=== PATIENT | female | born 1985 | race Caucasian/White ===

== ENCOUNTER → 2017-08-02 | Outpatient (CLI) | payer BC ==
--- NOTE | 2017-08-02 12:23 | Diagnostic Imaging Report ---
INDICATION: survey. TECHNIQUE: Multiple real-time grayscale images were obtained over the gravid uterus. COMPARISON: No prior examinations are available for comparison. FINDINGS: There is a single living intrauterine in a cephalic presentation. The placenta is anterior. There is no previa. There is a normal volume of amniotic fluid. The anatomical survey is unremarkable. The heart rate is 142 beats per minute. Cervical length is 3.7 cm. There are bilateral choroid plexus cysts. Cyst on the left measures 1.4 cm and cyst on the right measures 1.2 cm. Biometrical measurements are as follows: Biparietal 5.00 cm, age 21 weeks 1 days. Head circumference 18.33 cm, age 20 weeks 5 days. Abdominal circumference 16.31 cm, age 21 weeks 3 days. Femur length 3.89 cm, age 22 weeks 4 days. Sonographic estimate age: 21 weeks 4 days. Sonographic estimated date of delivery: 12/09/2017. Estimated Weight: 447 gm (+/- 65 gm). LMP percentile: 97%. heart rate: 142 beats per minute. number: 1 of 1. IMPRESSION: 1. Single living intrauterine with a sonographically estimated gestational age of 21 weeks 4 days and estimated date of confinement of December 09, 2017. 2. Bilateral choroid plexus cysts. Dictated by: Dictated on workstation # [id number]
== END ==
LOC: RAD 10:05
PROVIDERS: ATTEND Obstetrics & Gynecology
DX: O99.352 Diseases of the nervous system complicating pregnancy, second trimester (principal); G93.0 Cerebral cysts; Z3A.21 21 weeks gestation of pregnancy
CPT/HCPCS: 76805

== ENCOUNTER 2017-11-18 19:58 | Inpatient (IN) | payer BC ==
[~2017-11-18] VITALS: Ht 170.2 cm; Wt 80.3 kg
[2017-11-18 20:11] VITALS: BP 137/84
[2017-11-18] MEDS ORDERED: LACTATED RINGERS 1,000 ML IV SCH (20:28)
[2017-11-18] MEDS ORDERED: NS IV 1000 ML 1,000 ML IV SCH (20:28)
[2017-11-18] MEDS ORDERED: TERBUTALINE INJ 1 MG/ML (BRETHINE) AMP SC PRN (20:30)
[2017-11-18] MEDS ORDERED: MINERAL OIL CONCENTRATE 99.9% 15 ML UDC TOP PRN (20:30)
[2017-11-18] MEDS ORDERED: MISOPROSTOL 100 MCG (CYTOTEC) TAB PO ONE (20:30)
[2017-11-18] MEDS: D5 LR IV SOLUTION 1,000 ML IV SCH (20:44)
[2017-11-18] MEDS ORDERED: morphine INJ 10 MG/ML 1ML (SYR OR VIAL) IVP PRN (20:45)
[2017-11-18 20:54] LABS: BASOPHILS % (AUTO) 0 % (0-10); EOSINOPHILS % (AUTO) 0 % (0-10); HEMATOCRIT 34 % (35-52); HEMOGLOBIN 11.9 G/DL (11.5-16.0); LYMPHOCYTES # (AUTO) 3.4 X 10^3 (1.0-4.0); LYMPHOCYTES % (AUTO) 19 % (12-44); MEAN CORPUSCULAR HEMOGLOBIN 30 PG (25-34); MEAN CORPUSCULAR HGB CONC 35 G/DL (32-36); MEAN CORPUSCULAR VOLUME 86 FL (80-99); MEAN PLATELET VOLUME 12.8 FL (7.4-10.4); MONOCYTES % (AUTO) 11 % (0-12); NEUTROPHILS # (AUTO) 13.1 X 10^3 (1.8-7.8); NEUTROPHILS % (AUTO) 70 % (42-75); PLATELET COUNT 189 10^3/uL (130-400); RED CELL DISTRIBUTION WIDTH 12.8 % (10.0-14.5); WHITE BLOOD COUNT 18.6 10^3/uL (4.3-11.0)
[2017-11-18] MEDS ORDERED: ZOLPIDEM 5 MG (AMBIEN) TAB PO SCH (21:00)
[2017-11-18] MEDS ORDERED: PREN1TAB19 PO (21:04)
[2017-11-18] MEDS ORDERED: OMEG-141 PO (21:06)
[2017-11-18] MEDS ORDERED: IRON18TA PO (21:06)
[2017-11-18 21:07] LABS: BILIRUBIN,URINE NEGATIVE (NEGATIVE); CLARITY,URINE CLEAR; COLOR,URINE YELLOW; GLUCOSE, URINE (UA) NEGATIVE (NEGATIVE); KETONES,URINE NEGATIVE (NEGATIVE); LEUKOCYTE ESTERASE ,URINE NEGATIVE (NEGATIVE); NITRITE,URINE NEGATIVE (NEGATIVE); PH,URINE 6 (5-9); PROTEIN,URINE 3+ (NEGATIVE); UROBILINOGEN,URINE NORMAL (NORMAL)
[2017-11-18 21:11] LABS: ALANINE AMINOTRANSFERASE 29 U/L (0-55); ALBUMIN 3.2 GM/DL (3.2-4.5); ALKALINE PHOSPHATASE 212 U/L (40-136); BILIRUBIN,TOTAL 0.2 MG/DL (0.1-1.0); BUN/CREATININE RATIO 14; CALCIUM 8.9 MG/DL (8.5-10.1); CARBON DIOXIDE 23 MMOL/L (21-32); CHLORIDE 103 MMOL/L (98-107); CREATININE SERUM 0.72 MG/DL (0.60-1.30); GFR ESTIMATED > 60; GLUCOSE 97 MG/DL (70-105); SODIUM 135 MMOL/L (135-145); TOTAL PROTEIN 6.1 GM/DL (6.4-8.2); URIC ACID 5.3 MG/DL (2.6-7.2)
[2017-11-18 21:15] LABS: BACTERIA,URINE TRACE /HPF; RBC,URINE RARE /HPF; WBC,URINE 0-2 /HPF
[2017-11-18 21:18] LABS: BAND NEUTROPHILS 0 %; BASOPHILS % (MANUAL) 0 %; EOSINOPHILS % (MANUAL) 0 %; LYMPHOCYTES % (MANUAL) 24 %; MONOCYTES % (MANUAL) 5 %; NEUTROPHILS % (MANUAL) 71 %; RBC MORPH NORMAL
[2017-11-18] MEDS: ACETAMINOPHEN 500 MG TAB (TYLENOL) PO PRN (21:29)
[2017-11-18 23:15] VITALS: BP 132/67
[2017-11-19] VITALS (71 sets, daily range): BP systolic 116–188; BP diastolic 68–105
[2017-11-19] MEDS ORDERED: MISOPROSTOL 100 MCG (CYTOTEC) TAB PO SCH (00:30)
[2017-11-19] MEDS: D5 LR IV SOLUTION 1,000 ML IV SCH (02:26)
[2017-11-19] MEDS ORDERED: SUFENTA 0.6MCG/ML BUPIVA 0.125 100 ML ONE (06:31)
[2017-11-19] MEDS ORDERED: LIDOCAINE PF 2% 5 ML (XYLOCAINE) VIAL ONE (06:48)
[2017-11-19] MEDS ORDERED: fentaNYL INJECTION 100 MCG/2 ML AMP ONE (06:48)
[2017-11-19] MEDS ORDERED: BUPIVACAINE 0.25% 30 ML (SENSORCAINE) VIAL ONE (06:48)
[2017-11-19] MEDS ORDERED: LACTATED RINGERS 1,000 ML IV ONE ×2 (07:18)
[2017-11-19] MEDS ORDERED: ONDANSETRON 4 MG/2 ML (SDV) Z0FRAN IV PRN (07:30)
[2017-11-19] MEDS ORDERED: NALOXONE 0.4 MG/ML 1 ML (NARCAN) VIAL IV PRN (07:30)
[2017-11-19] MEDS ORDERED: EPIDURAL (SUFENTA 0.6MCG/ML BUPIVA 0.125%) 100 ML BAG EPI PRN (07:30)
[2017-11-19] MEDS ORDERED: fentaNYL INJECTION 100 MCG/2 ML AMP INJ ONE (07:30)
[2017-11-19] MEDS ORDERED: OXYTOCIN/NORMAL SALINE 500 ML IV ONE ×2 (09:59→13:23)
[2017-11-19] MEDS ORDERED: LIDOCAINE/EPI 2% 1:200,00 (XYLOCAINE) 10 ML VIAL ONE (09:59)
[2017-11-19] MEDS ORDERED: LABETALOL HCL 20 MG/4 ML VIAL IV ONE (10:45)
[2017-11-19] MEDS ORDERED: D5 LR IV SOLUTION 1,000 ML IV SCH (13:05)
[2017-11-19] MEDS ORDERED: OXYTOCIN/NORMAL SALINE 500 ML IV SCH (13:05)
--- NOTE | 2017-11-19 13:10 | OB Labor & Delivery Record ---
Vag Delivery Note Vag Delivery Note Date of Delivery: 11/19/17 Preoperative Diagnosis: Myrna Cabrera is a 32 /Para 1 /0 ,Gestational Age 36 weeks, severe preeclampsia (3.8 grams protein/24 hours) Postoperative Diagnosis: Same Surgeon: DORYS WELLS Anesthesia: epidural Delivery Type: vaginal Findings: Viable female , apgars pending, weight 4#13oz Lacerations: none Intact placenta with 3 vessel cord. Bandelaro cord/shoulder, body cord (reduced and delivered through) or no shoulder dystocia s Estimated Blood Loss: 150 ml Complications: None Condition: Stable Description of Procedure: The patient is a 32 year old who presented for induction of labor due to severe preeclampsia.. She was admitted and informed consent was obtained. Her labor course was remarkable for misoprostol then AROM, pitocin. she did have deep variable decelerations with pushing. She progressed to complete dilatation and began to push. She did receive IV labetalol x 1 during labor She was then set up for delivery. The 's head was delivered atraumatically in the OA position. The shoulders and remainder of the infant's body were then delivered without difficulty. Upon delivery, the head was held below the level of the perineum and the mouth and nares were bulb suctioned. The cord was doubly clamped and cut and the infant was handed off to the pediatric staff. An intact placenta with 3-vessel cord delivered via Claudia and there was found to be minimal bleeding.~ Vigorous fundal massage was performed and the fundus was found to be firm. IV oxytocin was given. Examination of the vagina and perineum revealed no lacerations. Following the delivery, sponge, instrument and needle counts were correct. Mom and baby were both in stable condition in the labor suite. Magnesium sulfate seizure prophylaxis was started. Vitals - Labs Vital Signs - I&O Vital Signs Date Time Temp Pulse Resp B/P (MAP) Pulse Ox O2 Delivery O2 Flow Rate FiO2 11/19/17 10:26 67 20 161/103 (122) Room Air 11/19/17 10:21 57 20 157/98 (117) Room Air 11/19/17 10:10 58 20 149/93 (111) Room Air 11/19/17 10:04 97.6 57 20 144/93 (110) Room Air 11/19/17 09:55 64 20 153/95 (114) Room Air 11/19/17 09:40 63 20 147/95 (112) 98 Room Air 11/19/17 09:25 68 20 144/94 (111) 97 Room Air 11/19/17 09:11 98.3 57 20 146/91 (109) 98 Room Air 11/19/17 08:56 69 20 146/91 (109) 100 Non Rebreather 15.00 11/19/17 08:42 62 20 136/78 (97) 100 Non Rebreather 15.00 11/19/17 08:36 52 20 124/72 (89) 97 Room Air 11/19/17 08:08 98.7 63 20 140/87 (104) 97 Room Air 11/19/17 08:05 62 20 138/84 (102) 98 Room Air 11/19/17 08:02 85 20 154/78 (103) Room Air 11/19/17 07:59 68 20 138/84 (102) 96 Room Air 11/19/17 07:56 65 20 132/81 (98) 96 Room Air 11/19/17 07:53 84 20 143/87 (105) 96 Room Air 11/19/17 07:50 79 20 143/88 (106) 96 Room Air 11/19/17 07:46 63 20 141/82 (101) 97 Room Air 11/19/17 07:44 67 20 152/85 (107) 97 Room Air 11/19/17 07:40 53 20 126/78 (94) 96 Room Air 11/19/17 07:38 58 20 131/82 (98) 96 Room Air 11/19/17 07:32 58 20 137/79 (98) 97 Room Air 11/19/17 07:29 52 20 137/76 (96) 94 Room Air 11/19/17 07:26 61 20 132/78 (96) 94 Room Air 11/19/17 07:23 53 20 134/78 (96) 98 Room Air 11/19/17 07:20 55 20 137/78 (97) 97 Room Air 11/19/17 07:17 62 20 139/85 (103) 99 Room Air 11/19/17 07:10 146/88 (107) 11/19/17 07:08 69 149/83 (105) 99 Room Air 11/19/17 07:05 81 165/86 (112) 99 Room Air 11/19/17 07:02 71 165/88 (113) 99 Room Air 11/19/17 07:00 Non Rebreather 10.00 11/19/17 06:57 76 169/87 (114) 99 Room Air 11/19/17 06:52 77 188/94 (125) 100 Room Air 11/19/17 06:37 Non Rebreather 10.00 11/19/17 06:30 59 167/90 (115) Room Air 11/19/17 06:00 98.5 74 99 Room Air 11/19/17 05:30 74 99 Room Air 11/19/17 05:00 89 97 Room Air 11/19/17 04:30 88 98 Room Air 11/19/17 04:23 66 141/81 (101) 97 Room Air 11/19/17 04:00 80 97 Room Air 11/19/17 03:23 105 139/98 (112) 98 Room Air 11/19/17 02:31 72 156/91 (112) Room Air 11/19/17 02:29 68 168/93 (118) 98 Room Air 11/19/17 02:24 57 171/97 (121) 11/19/17 01:17 98.6 11/19/17 00:15 69 16 116/68 (84) 11/18/17 23:15 51 132/67 (88) 11/18/17 21:30 98.7 11/18/17 20:11 70 18 137/84 (101) I & O 11/19/17 07:00 Intake Total 2500 ml Balance 2500 ml Labs Laboratory Tests 11/18/17 20:00: Urine Color YELLOW, Urine Clarity CLEAR, Urine pH 6, Urine Specific [place] 1.010L, Urine Protein 3+H, Urine Glucose (UA) NEGATIVE, Urine Ketones NEGATIVE, Urine Nitrite NEGATIVE, Urine Bilirubin NEGATIVE, Urine Urobilinogen NORMAL, Urine Leukocyte Esterase NEGATIVE, Urine RBC (Auto) 1+H, Urine RBC RARE, Urine WBC 0-2, Urine Squamous Epithelial Cells 2-5, Urine Crystals NONE, Urine Bacteria TRACE, Urine Casts NONE, Urine Mucus NEGATIVE, Urine Culture Indicated NO 11/18/17 20:20: White Blood Count 18.6H, Red Blood Count 4.00L, Hemoglobin 11.9, Hematocrit 34L , Mean Corpuscular Volume 86, Mean Corpuscular Hemoglobin 30, Mean Corpuscular Hemoglobin Concent 35, Red Cell Distribution Width 12.8, Platelet Count 189, Mean Platelet Volume 12.8H, Neutrophils (%) (Auto) 70, Lymphocytes (%) (Auto) 19 , Monocytes (%) (Auto) 11, Eosinophils (%) (Auto) 0, Basophils (%) (Auto) 0, Neutrophils # (Auto) 13.1H, Lymphocytes # (Auto) 3.4, Monocytes # (Auto) 2.0H, Eosinophils # (Auto) 0.0, Basophils # (Auto) 0.0, Neutrophils % (Manual) 71, Lymphocytes % (Manual) 24, Monocytes % (Manual) 5, Eosinophils % (Manual) 0, Basophils % (Manual) 0, Band Neutrophils 0, Blood Morphology Comment NORMAL, Sodium Level 135, Potassium Level 4.0, Chloride Level 103, Carbon Dioxide Level 23, Anion Gap 9, Blood Urea Nitrogen 10, Creatinine 0.72, Estimat Glomerular Filtration Rate > 60, BUN/Creatinine Ratio 14, Glucose Level 97, Uric Acid 5.3, Calcium Level 8.9, Total Bilirubin 0.2, Aspartate Amino Transf (AST/SGOT) 33, Alanine Aminotransferase (ALT/SGPT) 29, Alkaline Phosphatase 212H, Lactate Dehydrogenase 233H, Total Protein 6.1L, Albumin 3.2 Microbiology 11/18/17 Urine Culture - Preliminary, Resulted NO GROWTH DORYS WELLS DO Nov 19, 2017 13:10
[2017-11-19] MEDS ORDERED: MAGNESIUM 4 GM/100 ML IVPB 100 ML IV ONE (13:15)
[2017-11-19] MEDS ORDERED: CALCIUM GLUC. 10% 4.65 MEQ/10 ML VIAL IV PRN (13:15)
[2017-11-19] MEDS ORDERED: WITCH HAZEL(TUCKS) 40 EA JAR TOP PRN (13:15)
[2017-11-19] MEDS ORDERED: DIBUCAINE (NUPERCAINAL) 1% OINT 30 GM TOP PRN (13:15)
[2017-11-19] MEDS ORDERED: BENZOCAINE/MENTHOL (DERMOPLAST) 56 ML CAN TP PRN (13:15)
[2017-11-19] MEDS ORDERED: MEASLES,MUMPS,RUBELLA 1 EA INJ SQ ONE (13:15)
[2017-11-19] MEDS ORDERED: TETANUS,DIPTH,PERTUSS P/F (BOOSTRIX) 0.5 ML VIAL IM ONE (13:15)
[2017-11-19] MEDS ORDERED: CATHETER FLUSH 10 ML SYR IV SCH (14:00)
[2017-11-19] MEDS: MAGNESIUM SULFATE DRIP 500 ML IV SCH (14:50)
[2017-11-19] MEDS: IBUPROFEN 600 MG (MOTRIN) TAB PO SCH ×2 (15:08→22:38)
[2017-11-19] MEDS: DOCUSATE SODIUM 100 MG (COLACE) CAP PO SCH (22:39)
[2017-11-20] VITALS (9 sets, daily range): BP systolic 124–152; BP diastolic 73–99
[2017-11-20] MEDS: MAGNESIUM SULFATE DRIP 500 ML IV SCH (00:41)
[2017-11-20] MEDS: IBUPROFEN 600 MG (MOTRIN) TAB PO SCH ×4 (03:44→21:37)
[2017-11-20 05:24] LABS: BASOPHILS % (AUTO) 0 % (0-10); EOSINOPHILS % (AUTO) 0 % (0-10); HEMATOCRIT 31 % (35-52); LYMPHOCYTES # (AUTO) 2.7 X 10^3 (1.0-4.0); LYMPHOCYTES % (AUTO) 16 % (12-44); MEAN CORPUSCULAR HEMOGLOBIN 30 PG (25-34); MEAN CORPUSCULAR HGB CONC 35 G/DL (32-36); MEAN CORPUSCULAR VOLUME 86 FL (80-99); MEAN PLATELET VOLUME 12.3 FL (7.4-10.4); MONOCYTES # (AUTO) 1.2 X 10^3 (0.0-1.0); MONOCYTES % (AUTO) 7 % (0-12); NEUTROPHILS # (AUTO) 12.9 X 10^3 (1.8-7.8); NEUTROPHILS % (AUTO) 76 % (42-75); PLATELET COUNT 153 10^3/uL (130-400); RED BLOOD COUNT 3.66 10^6/uL (4.35-5.85); RED CELL DISTRIBUTION WIDTH 12.7 % (10.0-14.5); WHITE BLOOD COUNT 16.8 10^3/uL (4.3-11.0)
--- NOTE | 2017-11-20 07:02 | Postpartum Progress Note ---
Note Note Day # 1 s/p . Severe preeclampsia. Subjective: Patien complains of nasal stuffiness. Mild headache, some blurred vision. States she is dizzy when she rises. Still with some numbness in the feet but she is Ambulating, voiding. Magnesium discontinued and kirkland catheter discontinued. UO greater than 6 liters since delivery/diuresing well. Tolerating a regular diet without nausea or vomiting. Normal lochia. Pain is well controlled with oral pain medications. breast feeding. Objective: Laboratory Tests Test 11/20/17 05:05 Range/Units White Blood Count 16.8 H 4.3-11.0 10^3/uL Red Blood Count 3.66 L 4.35-5.85 10^6/uL Hemoglobin 11.0 L 11.5-16.0 G/DL Hematocrit 31 L 35-52 % Mean Corpuscular Volume 86 80-99 FL Mean Corpuscular Hemoglobin 30 25-34 PG Mean Corpuscular Hemoglobin Concent 35 32-36 G/DL Red Cell Distribution Width 12.7 10.0-14.5 % Platelet Count 153 130-400 10^3/uL Mean Platelet Volume 12.3 H 7.4-10.4 FL Neutrophils (%) (Auto) 76 H 42-75 % Lymphocytes (%) (Auto) 16 12-44 % Monocytes (%) (Auto) 7 0-12 % Eosinophils (%) (Auto) 0 0-10 % Basophils (%) (Auto) 0 0-10 % Neutrophils # (Auto) 12.9 H 1.8-7.8 X 10^3 Lymphocytes # (Auto) 2.7 1.0-4.0 X 10^3 Monocytes # (Auto) 1.2 H 0.0-1.0 X 10^3 Eosinophils # (Auto) 0.0 0.0-0.3 10^3/uL Basophils # (Auto) 0.0 0.0-0.1 10^3/uL VS - Last 72 Hours, by Label 11/18/17 11/18/17 11/18/17 11/19/17 20:11 21:30 23:15 00:15 Temp 98.7 Pulse 70 51 69 Resp 18 16 B/P (MAP) 137/84 (101) 132/67 (88) 116/68 (84) 11/19/17 11/19/17 11/19/17 11/19/17 01:17 02:24 02:29 02:31 Temp 98.6 Pulse 57 68 72 B/P (MAP) 171/97 (121) 168/93 (118) 156/91 (112) Pulse Ox 98 O2 Delivery Room Air Room Air 11/19/17 11/19/17 11/19/17 11/19/17 03:23 04:00 04:23 04:30 Pulse 105 80 66 88 B/P (MAP) 139/98 (112) 141/81 (101) Pulse Ox 98 97 97 98 O2 Delivery Room Air Room Air Room Air Room Air 11/19/17 11/19/17 11/19/17 11/19/17 05:00 05:30 06:00 06:30 Temp 98.5 Pulse 89 74 74 59 B/P (MAP) 167/90 (115) Pulse Ox 97 99 99 O2 Delivery Room Air Room Air Room Air Room Air 11/19/17 11/19/17 11/19/17 11/19/17 06:37 06:52 06:57 07:00 Pulse 77 76 B/P (MAP) 188/94 (125) 169/87 (114) Pulse Ox 100 99 O2 Delivery Non Rebreather Room Air Room Air Non Rebreather O2 Flow Rate 10.00 10.00 11/19/17 11/19/17 11/19/17 11/19/17 07:02 07:05 07:08 07:10 Pulse 71 81 69 B/P (MAP) 165/88 (113) 165/86 (112) 149/83 (105) 146/88 (107) Pulse Ox 99 99 99 O2 Delivery Room Air Room Air Room Air 11/19/17 11/19/17 11/19/17 11/19/17 07:17 07:20 07:23 07:26 Pulse 62 55 53 61 Resp 20 20 20 20 B/P (MAP) 139/85 (103) 137/78 (97) 134/78 (96) 132/78 (96) Pulse Ox 99 97 98 94 O2 Delivery Room Air Room Air Room Air Room Air 11/19/17 11/19/17 11/19/17 11/19/17 07:29 07:32 07:38 07:40 Pulse 52 58 58 53 Resp 20 20 20 20 B/P (MAP) 137/76 (96) 137/79 (98) 131/82 (98) 126/78 (94) Pulse Ox 94 97 96 96 O2 Delivery Room Air Room Air Room Air Room Air 11/19/17 11/19/17 11/19/17 11/19/17 07:44 07:46 07:50 07:53 Pulse 67 63 79 84 Resp 20 20 20 20 B/P (MAP) 152/85 (107) 141/82 (101) 143/88 (106) 143/87 (105) Pulse Ox 97 97 96 96 O2 Delivery Room Air Room Air Room Air Room Air 11/19/17 11/19/17 11/19/17 11/19/17 07:56 07:59 08:02 08:05 Pulse 65 68 85 62 Resp 20 20 20 20 B/P (MAP) 132/81 (98) 138/84 (102) 154/78 (103) 138/84 (102) Pulse Ox 96 96 98 O2 Delivery Room Air Room Air Room Air Room Air 11/19/17 11/19/17 11/19/17 11/19/17 08:08 08:36 08:42 08:56 Temp 98.7 Pulse 63 52 62 69 Resp 20 20 20 20 B/P (MAP) 140/87 (104) 124/72 (89) 136/78 (97) 146/91 (109) Pulse Ox 97 97 100 100 O2 Delivery Room Air Room Air Non Rebreather Non Rebreather O2 Flow Rate 15.00 15.00 11/19/17 11/19/17 11/19/17 11/19/17 09:11 09:25 09:40 09:55 Temp 98.3 Pulse 57 68 63 64 Resp 20 20 20 20 B/P (MAP) 146/91 (109) 144/94 (111) 147/95 (112) 153/95 (114) Pulse Ox 98 97 98 O2 Delivery Room Air Room Air Room Air Room Air 11/19/17 11/19/17 11/19/17 11/19/17 10:04 10:10 10:21 10:26 Temp 97.6 Pulse 57 58 57 67 Resp 20 20 20 20 B/P (MAP) 144/93 (110) 149/93 (111) 157/98 (117) 161/103 (122) O2 Delivery Room Air Room Air Room Air Room Air 11/19/17 11/19/17 11/19/17 11/19/17 10:40 10:55 11:10 11:25 Temp 97.7 Pulse 68 64 54 54 Resp 20 20 20 20 B/P (MAP) 159/105 (123) 148/90 (109) 150/90 (110) 150/90 (110) O2 Delivery Room Air Room Air Room Air Room Air 11/19/17 11/19/17 11/19/17 11/19/17 11:42 11:56 12:10 12:26 Pulse 59 55 59 60 Resp 20 20 20 20 B/P (MAP) 131/80 (97) 148/81 (103) 143/81 (101) 159/94 (115) O2 Delivery Room Air Room Air Room Air Room Air 11/19/17 11/19/17 11/19/17 11/19/17 12:42 12:54 13:09 13:24 Pulse 63 76 67 67 Resp 20 20 20 20 B/P (MAP) 141/80 (100) 162/84 (110) 147/89 (108) 161/80 (107) O2 Delivery Room Air Room Air Room Air Room Air 11/19/17 11/19/17 11/19/17 11/19/17 13:39 13:54 14:09 14:24 Temp 98.5 Pulse 68 74 61 61 Resp 20 20 20 20 B/P (MAP) 163/88 (113) 158/90 (112) 186/91 (122) 161/88 (112) O2 Delivery Room Air Room Air Room Air Room Air 11/19/17 11/19/17 11/19/17 11/19/17 14:24 15:09 15:24 15:39 Pulse 61 63 70 71 Resp 18 16 20 20 B/P (MAP) 146/94 (111) 145/88 (107) O2 Delivery Room Air Room Air 11/19/17 11/19/17 11/19/17 11/19/17 15:54 16:09 16:09 17:20 Pulse 58 55 55 68 Resp 20 20 16 18 B/P (MAP) 153/91 (111) 152/90 (110) O2 Delivery Room Air Room Air 3/16/18 3/16/18 3/16/18 3/16/18 18:35 20:00 20:00 21:00 Temp 96.9 98.4 Pulse 73 69 69 63 Resp 18 18 18 18 B/P (MAP) 146/91 (109) 137/86 (103) 11/19/17 11/19/17 11/19/17 11/19/17 21:15 22:00 22:15 23:15 Temp 98.1 Pulse 63 80 80 63 Resp 18 18 18 B/P (MAP) 140/91 (107) 11/19/17 11/20/17 11/20/17 11/20/17 23:20 00:48 00:48 01:52 Temp 97.4 97.0 97.8 Pulse 63 74 74 69 Resp 18 18 18 B/P (MAP) 130/75 (93) 140/90 (107) 127/73 (91) Pulse Ox 97 11/20/17 11/20/17 11/20/17 01:52 02:55 02:56 Temp 97.7 Pulse 69 66 66 Resp 18 18 B/P (MAP) 124/76 (92) Intake and Output 11/20/17 00:00 Intake Total 5400 ml Output Total 6700 ml Balance -1300 ml Intake Oral 1800 ml IV Total 3600 ml Output Urine Total 6700 ml Physical Exam: General - Alert and oriented, no apparent distress Abdomen - Soft, appropriately tender to palpation, non-distended, fundus firm at umbilicus Extremities - 1+ edema, negative Lacey's bilaterally Assessment: 1. post- day # 1, status post spontaneous vaginal delivery; magnesium sulfate seizure prophylaxis for severe preeclampsia. BP normal but hasn't been up much yet.. Recovering well, hemodynamically stable 2. severe prophylaxis Plan: Routine care. Encourage breast feeding. Encourage ambulation. Ferrous sulfate supplementation. Plan for discharge tomorrow. Consider BP treatment as needed (not yet) Vitals - Labs Vital Signs - I&O Vital Signs Date Time Temp Pulse Resp B/P (MAP) Pulse Ox O2 Delivery O2 Flow Rate FiO2 11/20/17 02:56 66 18 11/20/17 02:55 97.7 66 18 124/76 (92) 11/20/17 01:52 69 18 11/20/17 01:52 97.8 69 18 127/73 (91) 11/20/17 00:48 74 18 11/20/17 00:48 97.0 74 18 140/90 (107) 97 11/19/17 23:20 97.4 63 18 130/75 (93) 11/19/17 23:15 63 18 11/19/17 22:15 80 18 11/19/17 22:00 98.1 80 20 140/91 (107) 11/19/17 21:15 63 18 11/19/17 21:00 98.4 63 18 137/86 (103) 11/19/17 20:00 96.9 69 18 146/91 (109) 11/19/17 20:00 69 18 11/19/17 18:35 73 18 11/19/17 17:20 68 18 11/19/17 16:09 55 16 11/19/17 16:09 55 20 152/90 (110) Room Air 11/19/17 15:54 58 20 153/91 (111) Room Air 11/19/17 15:39 71 20 145/88 (107) Room Air 11/19/17 15:24 70 20 146/94 (111) Room Air 11/19/17 15:09 63 16 11/19/17 14:24 61 18 11/19/17 14:24 61 20 161/88 (112) Room Air 11/19/17 14:09 98.5 61 20 186/91 (122) Room Air 11/19/17 13:54 74 20 158/90 (112) Room Air 11/19/17 13:39 68 20 163/88 (113) Room Air 11/19/17 13:24 67 20 161/80 (107) Room Air 11/19/17 13:09 67 20 147/89 (108) Room Air 11/19/17 12:54 76 20 162/84 (110) Room Air 11/19/17 12:42 63 20 141/80 (100) Room Air 11/19/17 12:26 60 20 159/94 (115) Room Air 11/19/17 12:10 59 20 143/81 (101) Room Air 11/19/17 11:56 55 20 148/81 (103) Room Air 11/19/17 11:42 59 20 131/80 (97) Room Air 11/19/17 11:25 97.7 54 20 150/90 (110) Room Air 11/19/17 11:10 54 20 150/90 (110) Room Air 11/19/17 10:55 64 20 148/90 (109) Room Air 11/19/17 10:40 68 20 159/105 (123) Room Air 11/19/17 10:26 67 20 161/103 (122) Room Air 11/19/17 10:21 57 20 157/98 (117) Room Air 11/19/17 10:10 58 20 149/93 (111) Room Air 11/19/17 10:04 97.6 57 20 144/93 (110) Room Air 11/19/17 09:55 64 20 153/95 (114) Room Air 11/19/17 09:40 63 20 147/95 (112) 98 Room Air 11/19/17 09:25 68 20 144/94 (111) 97 Room Air 11/19/17 09:11 98.3 57 20 146/91 (109) 98 Room Air 11/19/17 08:56 69 20 146/91 (109) 100 Non Rebreather 15.00 11/19/17 08:42 62 20 136/78 (97) 100 Non Rebreather 15.00 11/19/17 08:36 52 20 124/72 (89) 97 Room Air 11/19/17 08:08 98.7 63 20 140/87 (104) 97 Room Air 11/19/17 08:05 62 20 138/84 (102) 98 Room Air 11/19/17 08:02 85 20 154/78 (103) Room Air 11/19/17 07:59 68 20 138/84 (102) 96 Room Air 11/19/17 07:56 65 20 132/81 (98) 96 Room Air 11/19/17 07:53 84 20 143/87 (105) 96 Room Air 11/19/17 07:50 79 20 143/88 (106) 96 Room Air 11/19/17 07:46 63 20 141/82 (101) 97 Room Air 11/19/17 07:44 67 20 152/85 (107) 97 Room Air 11/19/17 07:40 53 20 126/78 (94) 96 Room Air 11/19/17 07:38 58 20 131/82 (98) 96 Room Air 11/19/17 07:32 58 20 137/79 (98) 97 Room Air 11/19/17 07:29 52 20 137/76 (96) 94 Room Air 11/19/17 07:26 61 20 132/78 (96) 94 Room Air 11/19/17 07:23 53 20 134/78 (96) 98 Room Air 11/19/17 07:20 55 20 137/78 (97) 97 Room Air 11/19/17 07:17 62 20 139/85 (103) 99 Room Air 11/19/17 07:10 146/88 (107) 11/19/17 07:08 69 149/83 (105) 99 Room Air 11/19/17 07:05 81 165/86 (112) 99 Room Air 11/19/17 07:02 71 165/88 (113) 99 Room Air I & O 11/20/17 07:00 Intake Total 4900 ml Output Total 9100 ml Balance -4200 ml Labs Laboratory Tests 11/20/17 05:05: White Blood Count 16.8H, Red Blood Count 3.66L, Hemoglobin 11.0L, Hematocrit 31L , Mean Corpuscular Volume 86, Mean Corpuscular Hemoglobin 30, Mean Corpuscular Hemoglobin Concent 35, Red Cell Distribution Width 12.7, Platelet Count 153, Mean Platelet Volume 12.3H, Neutrophils (%) (Auto) 76H, Lymphocytes (%) (Auto) 16, Monocytes (%) (Auto) 7, Eosinophils (%) (Auto) 0, Basophils (%) (Auto) 0, Neutrophils # (Auto) 12.9H, Lymphocytes # (Auto) 2.7, Monocytes # (Auto) 1.2H, Eosinophils # (Auto) 0.0, Basophils # (Auto) 0.0 Microbiology 11/18/17 Urine Culture - Preliminary, Resulted NO GROWTH DORYS WELLS DO Nov 20, 2017 07:02
[2017-11-20] MEDS: FERROUS SULF 325 MG (IRON) TAB PO SCH (08:33)
[2017-11-20] MEDS: PRENATAL VITAMIN 1 EA TAB PO SCH (08:33)
[2017-11-20] MEDS: DOCUSATE SODIUM 100 MG (COLACE) CAP PO SCH ×2 (08:33→21:37)
[2017-11-20] MEDS: OXYMETAZOLINE (AFRIN) 0.05% NA 15 ML BTL SCH ×2 (08:34→21:40)
[2017-11-20] MEDS ORDERED: DOCUSATE CALCIUM 240 MG (SURFAK) CAP PO SCH (09:00)
[2017-11-20 12:20] LABS: BASOPHILS % (AUTO) 0 % (0-10); EOSINOPHILS % (AUTO) 0 % (0-10); HEMATOCRIT 32 % (35-52); HEMOGLOBIN 11.1 G/DL (11.5-16.0); LYMPHOCYTES % (AUTO) 20 % (12-44); MEAN CORPUSCULAR HEMOGLOBIN 30 PG (25-34); MEAN CORPUSCULAR HGB CONC 35 G/DL (32-36); MEAN CORPUSCULAR VOLUME 86 FL (80-99); MEAN PLATELET VOLUME 12.5 FL (7.4-10.4); MONOCYTES # (AUTO) 1.1 X 10^3 (0.0-1.0); MONOCYTES % (AUTO) 7 % (0-12); NEUTROPHILS # (AUTO) 11.1 X 10^3 (1.8-7.8); NEUTROPHILS % (AUTO) 73 % (42-75); PLATELET COUNT 147 10^3/uL (130-400); RED BLOOD COUNT 3.74 10^6/uL (4.35-5.85); RED CELL DISTRIBUTION WIDTH 12.9 % (10.0-14.5); WHITE BLOOD COUNT 15.2 10^3/uL (4.3-11.0)
[2017-11-20 12:37] LABS: ALANINE AMINOTRANSFERASE 21 U/L (0-55); ALBUMIN 2.8 GM/DL (3.2-4.5); ALKALINE PHOSPHATASE 159 U/L (40-136); BILIRUBIN,TOTAL 0.1 MG/DL (0.1-1.0); BUN/CREATININE RATIO 11; CALCIUM 7.7 MG/DL (8.5-10.1); CARBON DIOXIDE 24 MMOL/L (21-32); CHLORIDE 103 MMOL/L (98-107); CREATININE SERUM 0.71 MG/DL (0.60-1.30); GFR ESTIMATED > 60; GLUCOSE 113 MG/DL (70-105); POTASSIUM 3.8 MMOL/L (3.6-5.0); SODIUM 135 MMOL/L (135-145); TOTAL PROTEIN 5.3 GM/DL (6.4-8.2)
[2017-11-20] MEDS: ACETAMINOPHEN 500 MG TAB (TYLENOL) PO PRN (15:49)
[2017-11-21 00:31] VITALS: BP 140/89
[2017-11-21] MEDS: IBUPROFEN 600 MG (MOTRIN) TAB PO SCH ×2 (04:51→11:47)
[2017-11-21 05:00] VITALS: BP 141/91
[2017-11-21] MEDS ORDERED: IBUP-1773 PO (07:30)
[2017-11-21] MEDS ORDERED: AMLO5TAB2 PO (07:30)
[2017-11-21] MEDS ORDERED: amLODIPine 5 MG (NORVASC) TAB PO ONE (07:30)
--- NOTE | 2017-11-21 07:33 | Discharge Inst-Women's Service ---
Discharge Inst-Women's Serv Depart Medication/Instructions New, Converted or Re-Newed RX: Call to Patients Pharmacy Final Diagnosis severe preeclampsia induction vaginal delivery epidural Consults/Follow Up Additional Follow Up: Yes Activity Activity: Activity as Tolerated Driving Instructions: You May Drive NO SMOKING: NO SMOKING Nothing Inside Vagina: No Douching, No [place], No Tampons Diet Discharge Diet: No Restrictions Symptoms to Report to : Bleeding Excessive, Pain Increased, Fever Over 101 Degrees F, Vaginal Bleeding Increase, Cramps in Feet or Legs, Vaginal Discharge Foul For Any Problems or Questions: Contact Your Physician DORYS WELLS DO Nov 21, 2017 07:33
--- NOTE | 2017-11-21 08:41 | Progress Note-Standard ---
Standard Progress Note Progress Notes/Assess & Plan Date Seen by Provider: Nov 21, 2017 Time Seen by Provider: 08:39 Progress/Assessment & Plan This patient is without complaint. She is ambulating, voiding, tolerating oral intake well, has good pain control. Patient denies chest pain, denies shortness of breath, denies headache, denies nausea vomiting. Vital Signs Date Time Temp Pulse Resp B/P (MAP) Pulse Ox O2 Delivery O2 Flow Rate FiO2 11/21/17 05:00 98.8 64 18 141/91 (108) 97 Room Air 11/21/17 00:31 98.0 69 16 140/89 (106) 97 Room Air 11/20/17 19:42 98.8 71 18 147/99 (115) 98 Room Air 11/20/17 15:50 98.6 70 12 152/94 (113) 96 Room Air 11/20/17 11:30 98.2 67 12 147/91 (109) 98 Room Air 11/20/17 08:58 76 133/91 (105) Room Air I & O 11/21/17 07:00 Intake Total 950 ml Balance 950 ml Blood pressures are stable with a slightly elevated The abdomen is benign Extremities show no clubbing or cyanosis Assessment and plan day number 2 status post spontaneous vaginal delivery doing well. This patient was admitted with severe preeclampsia. Her blood pressures were a little labile on day number 1 they are stable in the 140s over 90s range which is slightly elevated but improved over admission. Patient is diuresing well and her lab work is stable and reassuring. Plan is for discharge home with follow-up in clinic. Patient is given strict precautions return to clinic for any signs symptoms or indications of return of her preeclampsia Final Diagnosis Spontaneous vaginal delivery IRVIN GARCIA MD Nov 21, 2017 8:41 am
[2017-11-21 09:50] VITALS: BP 147/98
--- NOTE | 2017-11-21 10:37 | Anesthesia-Regional Post-Op ---
Regional Patient Condition Mental Status: Alert, Oriented x3 Circulation: Same as Pre-Op Headache: Absent Sensation: Full Recovery Motor Block: Absent Post Op Complications Complications None Follow Up Care/Instructions Patient Instructions None needed. Anesthesia/Patient Condition Patient is doing well, no complaints, stable vital signs, no apparent adverse anesthesia problems. No complications reported per nursing. PURVI FREY CRNA Nov 21, 2017 10:37
[2017-11-21] MEDS: FERROUS SULF 325 MG (IRON) TAB PO SCH (11:47)
[2017-11-21] MEDS: PRENATAL VITAMIN 1 EA TAB PO SCH (11:47)
== END 2017-11-21 14:30 | disposition home or self-care (01) | DRG 775 ==
LOC: LDRP 19:58
PROVIDERS: ADMIT Obstetrics & Gynecology; ATTEND Obstetrics & Gynecology
PROC: 10E0XZZ Delivery of Products of Conception, External Approach (ICD-10-PCS; principal; 2017-11-19)
DX: O14.14 Severe pre-eclampsia complicating childbirth (principal); O69.82X0 Labor and delivery complicated by other cord entanglement, without compression, not applicable or unspecified; Z3A.36 36 weeks gestation of pregnancy; Z37.0 Single live birth
CPT/HCPCS: 36415; 80053; 81000; 83615; 84550; 85007; 85025; 85027; 86850; 86900; 86901; 87088

== ENCOUNTER → 2019-03-27 | Outpatient (CLI) | payer BC ==
[~2019-03-27] MED LIST: AMLO5TAB9 PO; IBUP-1773 PO; IRON18TA PO; OMEG-141 PO; PREN1TAB19 PO
--- NOTE | 2019-03-27 14:04 | Diagnostic Imaging Report ---
INDICATION: survey. TECHNIQUE: Multiple real-time grayscale images were obtained over the gravid uterus. COMPARISON: There are no prior studies available for comparison. FINDINGS: There is a single live fetus in cephalic presentation. heart motion was noted and a rate of 140 BPM was recorded. There were no abnormalities identified. The placenta is posterior and low lying. There is no previa identified. The amniotic fluid volume is within normal limits. The growth parameters are fairly uniform. The cervix was identified and measures 4.5 cm in length. Biometrical measurements are as follows: Biparietal 4.11 cm, age 18 weeks 4 days. Head circumference 15.60 cm, age 18 weeks 4 days. Abdominal circumference 13.30 cm, age 18 weeks 6 days. Femur length 2.99 cm, age 19 weeks 2 days. Sonographic estimate age: 18 weeks 6 days. Sonographic estimated date of delivery: 08/22/2019. Estimated Weight: 265 gm (+/- 39 gm). LMP percentile: 20%. heart rate: 140 beats per minute. number: 1 of 1. IMPRESSION: 1. There is a single live fetus of approximately 18 week 6 days gestation +/-1.5 weeks. The EDC is August 22, 2019. 2. There were no abnormalities identified. 3. The growth parameters are fairly uniform.. 4. The placenta is posterior and may be low lying. If further evaluation of the position of the placenta is desired, then a short-term (4-6 week) followup exam would be recommended. Dictated by: Dictated on workstation # [id number]
== END ==
LOC: RAD 11:14
PROVIDERS: ATTEND Obstetrics & Gynecology
DX: Z36.89 Encounter for other specified antenatal screening (principal); Z3A.18 18 weeks gestation of pregnancy
CPT/HCPCS: 76805

== ENCOUNTER → 2019-04-26 | Outpatient (CLI) | payer BC ==
--- NOTE | 2019-04-26 14:28 | Diagnostic Imaging Report ---
INDICATION: Low-lying placenta. TECHNIQUE: Multiple real-time grayscale images were obtained over the gravid uterus. COMPARISON: 03/27/2019. FINDINGS: There is a single live fetus in a cephalic presentation. heart rate was recorded at 138 beats per minute. Placenta is posterior. No previa is identified. The placental tip is located approximately 2.7 cm from the internal cervical os. kidneys, bladder and stomach are unremarkable. There is a four-chamber heart. IMPRESSION: Placenta does not appear to be low lying on today's study. The tip is located 2.7 cm from the internal os. No complicating features are detected. Dictated by: Dictated on workstation # [id number]
== END ==
LOC: RAD 11:16
PROVIDERS: ATTEND Obstetrics & Gynecology
DX: Z34.90 Encounter for supervision of normal pregnancy, unspecified, unspecified trimester (principal); Z34.00 Encounter for supervision of normal first pregnancy, unspecified trimester
CPT/HCPCS: 76816

== ENCOUNTER 2019-08-11 06:00 | Inpatient (IN) | payer BC ==
[~2019-08-11] VITALS: Ht 170.2 cm; Wt 77.7 kg
[2019-08-11] VITALS (39 sets, daily range): BP systolic 84–141; BP diastolic 45–92
--- NOTE | 2019-08-11 06:00 | NUR ---
COLIN HARDY presented to unit via ambulatory from home, accompanied by so, for scheduled INDUCTION. COLIN HARDY weighed, gowned, voided, and to bed. EFHM and TOCO applied, VS taken. COLIN HARDY oriented to bed controls, call light, TV, heat, and A/C controls.
[2019-08-11] MEDS ORDERED: D5 LR IV SOLUTION 1,000 ML IV SCH ×2 (06:30→07:24)
--- NOTE | 2019-08-11 07:25 | NUR ---
Dr Dougherty called to inquire if pt had arrived. Mom told this nurse she prefers not to have pitocin and wanted to discuss with physician. Discussed this with Dr Dougherty. Physician stated she could eat breakfast and she would arrive about 0815 to probably AROM since she was 3cms in office on Wednesday.
[2019-08-11] MEDS ORDERED: MINERAL OIL CONCENTRATE 99.9% 15 ML UDC TOP PRN (07:30)
[2019-08-11] MEDS ORDERED: SUFENTA 0.6MCG/ML BUPIVA 0.125 100 ML ONE (07:38)
[2019-08-11 07:40] LABS: BASOPHILS % (AUTO) 0 % (0-10); EOSINOPHILS # (AUTO) 0.1 10^3/uL (0.0-0.3); EOSINOPHILS % (AUTO) 1 % (0-10); HEMATOCRIT 32 % (35-52); LYMPHOCYTES # (AUTO) 2.2 X 10^3 (1.0-4.0); LYMPHOCYTES % (AUTO) 24 % (12-44); MEAN CORPUSCULAR HEMOGLOBIN 29 PG (25-34); MEAN CORPUSCULAR HGB CONC 34 G/DL (32-36); MEAN CORPUSCULAR VOLUME 84 FL (80-99); MEAN PLATELET VOLUME 11.9 FL (7.4-10.4); MONOCYTES # (AUTO) 0.8 X 10^3 (0.0-1.0); MONOCYTES % (AUTO) 9 % (0-12); NEUTROPHILS # (AUTO) 6.1 X 10^3 (1.8-7.8); NEUTROPHILS % (AUTO) 67 % (42-75); PLATELET COUNT 200 10^3/uL (130-400); RED CELL DISTRIBUTION WIDTH 12.2 % (10.0-14.5); WHITE BLOOD COUNT 9.2 10^3/uL (4.3-11.0)
[2019-08-11] MEDS ORDERED: BUPIVACAINE 0.25% 30 ML (SENSORCAINE) VIAL ONE (09:23)
[2019-08-11] MEDS ORDERED: fentaNYL INJECTION 100 MCG/2 ML AMP ONE (09:23)
[2019-08-11] MEDS ORDERED: LACTATED RINGERS 1,000 ML IV ONE (09:51)
--- NOTE | 2019-08-11 09:55 | NUR ---
Received dietary consult for MST score. Note pt weight was entered incorrectly, per RN. Pt is not at risk for malnutrition at this time. Clyde Diaz, MS, RD, LD
[2019-08-11] MEDS ORDERED: NALOXONE 0.4 MG/ML 1 ML (NARCAN) VIAL IV PRN (10:00)
[2019-08-11] MEDS ORDERED: CATHETER FLUSH 10 ML SYR IV PRN (10:00)
[2019-08-11] MEDS ORDERED: EPIDURAL (SUFENTA 0.6MCG/ML BUPIVA 0.125%) 100 ML BAG EPI SCH (10:00)
[2019-08-11] MEDS ORDERED: OXYTOCIN PRE-MIX DRIP 500 ML IV ONE ×2 (11:28)
[2019-08-11] MEDS ORDERED: OXYTOCIN PRE-MIX DRIP 500 ML IV SCH ×2 (11:44→13:51)
[2019-08-11] MEDS ORDERED: LIDOCAINE/EPI 2% 1:200,00 (XYLOCAINE) 10 ML VIAL ONE (13:24)
[2019-08-11] MEDS ORDERED: TETANUS,DIPTH,PERTUSS P/F (BOOSTRIX) 0.5 ML VIAL IM ONE (14:00)
[2019-08-11] MEDS ORDERED: WITCH HAZEL(TUCKS) 40 EA JAR TOP PRN (14:00)
[2019-08-11] MEDS ORDERED: CATHETER FLUSH 10 ML SYR IV SCH ×2 (14:00)
[2019-08-11] MEDS ORDERED: BENZOCAINE/MENTHOL (DERMOPLAST) 60 ML CAN TP PRN (14:00)
[2019-08-11] MEDS ORDERED: MEASLES,MUMPS,RUBELLA 1 EA INJ SQ ONE (14:00)
--- NOTE | 2019-08-11 14:51 | Discharge Inst-Women's Service ---
Discharge Inst-Women's Serv Depart Medication/Instructions New, Converted or Re-Newed RX: Transmitted to Pharmacy Final Diagnosis vaginal delivery\ epidural Problems Reviewed?: Yes Consults/Follow Up Additional Follow Up: Yes Activity Activity: Activity as Tolerated Driving Instructions: You May Drive NO SMOKING: NO SMOKING Nothing Inside Vagina: No Douching, No [place], No Tampons Diet Discharge Diet: No Restrictions Symptoms to Report to : Bleeding Excessive, Pain Increased, Fever Over 101 Degrees F, Pain/Pressure in Jaw, Vaginal Bleeding Increase, Vaginal Discharge Foul For Any Problems or Questions: Contact Your Physician Skin/Wound Care Bathing Instructions: Bonnie Amor ANGELA C DO Aug 11, 2019 14:51 POS
[2019-08-11] MEDS ORDERED: IBUP-844 PO (14:52)
[2019-08-11] MEDS ORDERED: ACET-78 PO (14:52)
[2019-08-11] MEDS ORDERED: FERR325T18 PO (14:52)
[2019-08-11] MEDS: IBUPROFEN 600 MG (MOTRIN) TAB PO SCH ×2 (15:30→21:04)
--- NOTE | 2019-08-11 18:00 | NUR ---
report received from naldo baker rn
--- NOTE | 2019-08-11 20:04 | OB Labor & Delivery Record ---
Vag Delivery Note Vag Delivery Note Date of Delivery: 08/11/19 Preoperative Diagnosis: Myrna Cabrera is a 33 /Para 2/1,Gestational Age 39 weeks for social induction Postoperative Diagnosis: Same Surgeon: DORYS WELLS Water Project Manager: Karie Galvan, MS III Anesthesia: epidural Delivery Type: vaginal Findings: Viable female infant, apgars 8/9 weight 6#10oz Lacerations: none Intact placenta with 3 vessel cord. No nuchal cord, body cord or shoulder dystocia Estimated Blood Loss: 250 ml Complications: None Condition: Stable Description of Procedure: The patient is a 33 year old female who presented for induction of labor. She was admitted and informed consent was obtained. Her labor course was remarkable for AROM, epidural and oxytocin augmentation. She progressed to complete dilatation and began to push. She was then set up for delivery. The 's head was delivered atraumatically in the AURELIANO position. The shoulders and remainder of the infant's body were then delivered without difficulty. Upon delivery, the head was held below the level of the perineum and the mouth and nares were bulb suctioned. The cord was doubly clamped and cut and the was handed off to the pediatric staff. An intact placenta with 3-vessel cord delivered via Claudia and there was found to be minimal bleeding.~ Vigorous fundal massage was performed and the fundus was found to be firm. IV oxytocin was given. Examination of the vagina and perineum revealed no laceration.. Following the delivery, sponge, instrument and needle counts were correct. Mom and baby were both in stable condition in the labor suite. Vitals - Labs Vital Signs - I&O Vital Signs Date Time Temp Pulse Resp B/P (MAP) Pulse Ox O2 Delivery O2 Flow Rate FiO2 08/11/19 16:30 53 113/75 (88) 08/11/19 16:00 48 122/84 (97) 08/11/19 15:45 48 127/85 (99) 08/11/19 15:30 51 122/83 (96) 08/11/19 15:15 58 120/75 (90) 08/11/19 15:00 62 121/74 (90) 08/11/19 14:45 54 116/72 (87) Room Air 08/11/19 14:15 56 114/76 (89) Room Air 08/11/19 14:00 53 110/73 (85) Room Air 08/11/19 13:45 36.5 48 110/65 (80) Room Air 08/11/19 13:30 63 123/83 (96) Room Air 08/11/19 13:15 55 112/80 (91) Room Air 08/11/19 13:00 48 110/75 (87) Room Air 08/11/19 12:45 36.3 50 117/75 (89) Room Air 08/11/19 12:30 52 111/67 (82) Room Air 08/11/19 12:15 51 112/70 (84) Room Air 08/11/19 12:00 48 16 111/71 (84) 99 08/11/19 11:45 52 110/66 (81) 98 08/11/19 11:30 61 106/60 (75) 98 08/11/19 11:15 50 105/64 (78) 98 08/11/19 11:00 36.0 65 118/64 (82) 97 08/11/19 10:45 36.0 59 118/64 (82) 98 08/11/19 10:30 36.0 61 118/73 (88) 98 08/11/19 10:15 61 121/67 (85) 98 08/11/19 10:00 66 114/70 (85) 98 08/11/19 09:55 72 111/70 (84) 98 08/11/19 09:50 64 107/65 (79) 98 08/11/19 09:48 65 92/50 (64) 98 08/11/19 09:45 71 84/45 (58) 98 08/11/19 09:41 84 108/60 (76) 97 08/11/19 09:39 81 117/74 (88) 98 08/11/19 09:34 75 117/73 (88) 98 08/11/19 09:33 68 124/77 (93) 98 08/11/19 09:31 75 125/78 (94) 98 Room Air 08/11/19 09:24 72 135/81 (99) 99 Room Air 08/11/19 09:19 73 18 123/71 (88) 99 Room Air 08/11/19 08:09 36.6 68 18 99 Room Air 08/11/19 07:00 64 18 118/85 (96) 99 Labs Laboratory Tests 08/11/19 06:25: White Blood Count 9.2, Red Blood Count 3.84L, Hemoglobin 11.0L, Hematocrit 32L, Mean Corpuscular Volume 84, Mean Corpuscular Hemoglobin 29, Mean Corpuscular Hemoglobin Concent 34, Red Cell Distribution Width 12.2, Platelet Count 200, Mean Platelet Volume 11.9H, Neutrophils (%) (Auto) 67, Lymphocytes (%) (Auto) 24, Monocytes (%) (Auto) 9, Eosinophils (%) (Auto) 1, Basophils (%) (Auto) 0, Neutrophils # (Auto) 6.1, Lymphocytes # (Auto) 2.2, Monocytes # (Auto) 0.8, Eosinophils # (Auto) 0.1, Basophils # (Auto) 0.0 DORYS WELLS DO Aug 11, 2019 20:04 POS
[2019-08-11] MEDS: DOCUSATE SODIUM 100 MG (COLACE) CAP PO SCH (21:04)
[2019-08-11] MEDS: ACETAMINOPHEN 500 MG TAB (TYLENOL) PO SCH (23:09)
[2019-08-12 02:30] VITALS: BP 116/77
[2019-08-12] MEDS: IBUPROFEN 600 MG (MOTRIN) TAB PO SCH ×3 (02:44→15:21)
[2019-08-12 06:28] LABS: BASOPHILS % (AUTO) 0 % (0-10); EOSINOPHILS % (AUTO) 0 % (0-10); HEMATOCRIT 33 % (35-52); HEMOGLOBIN 11.5 G/DL (11.5-16.0); LYMPHOCYTES # (AUTO) 2.2 X 10^3 (1.0-4.0); LYMPHOCYTES % (AUTO) 23 % (12-44); MEAN CORPUSCULAR HEMOGLOBIN 29 PG (25-34); MEAN CORPUSCULAR HGB CONC 35 G/DL (32-36); MEAN CORPUSCULAR VOLUME 83 FL (80-99); MEAN PLATELET VOLUME 11.3 FL (7.4-10.4); MONOCYTES # (AUTO) 0.6 X 10^3 (0.0-1.0); MONOCYTES % (AUTO) 6 % (0-12); NEUTROPHILS # (AUTO) 6.8 X 10^3 (1.8-7.8); NEUTROPHILS % (AUTO) 71 % (42-75); PLATELET COUNT 183 10^3/uL (130-400); RED CELL DISTRIBUTION WIDTH 12.5 % (10.0-14.5); WHITE BLOOD COUNT 9.7 10^3/uL (4.3-11.0)
[2019-08-12 06:31] VITALS: BP 114/74
[2019-08-12] MEDS: ACETAMINOPHEN 500 MG TAB (TYLENOL) PO SCH ×2 (06:33→15:21)
[2019-08-12] MEDS ORDERED: PRENATAL VITAMIN 1 EA TAB PO SCH (07:00)
[2019-08-12] MEDS ORDERED: FERROUS SULF 325 MG (IRON) TAB PO SCH (08:00)
--- NOTE | 2019-08-12 08:57 | Anesthesia-Regional Post-Op ---
Regional Patient Condition Mental Status: Alert, Oriented x3 Circulation: Same as Pre-Op Headache: Absent Sensation: Full Recovery Motor Block: Absent Post Op Complications Complications None Follow Up Care/Instructions Patient Instructions None needed. Anesthesia/Patient Condition Patient is doing well, no complaints, stable vital signs, no apparent adverse anesthesia problems. No complications reported per nursing. ARTIE DOS SANTOS CRNA Aug 12, 2019 08:57 POS
[2019-08-12] MEDS: DOCUSATE SODIUM 100 MG (COLACE) CAP PO SCH (10:13)
[2019-08-12 10:15] VITALS: BP 121/72
--- NOTE | 2019-08-12 10:15 | NUR ---
initial shift assessment completed, see interventions for further.
--- NOTE | 2019-08-12 10:45 | Postpartum Progress Note ---
Note Note Day # 1 Subjective: Patient is without complaints. Ambulating, voiding. Tolerating a regular diet without nausea or vomiting. Normal lochia. Pain is well controlled with oral pain medications. Objective: Physical Exam: General - Alert and oriented, no apparent distress Abdomen - Soft, appropriately tender to palpation, non-distended, fundus firm at umbilicus Extremities - no edema, negative Lacey's bilaterally Assessment: PPD 1 nvd Plan: Routine care. Encourage breast feeding. Encourage ambulation. Ferrous sulfate supplementation. Plan for discharge today Vitals - Labs Vital Signs - I&O Vital Signs Date Time Temp Pulse Resp B/P (MAP) Pulse Ox O2 Delivery O2 Flow Rate FiO2 08/12/19 06:31 36.4 55 16 114/74 (87) 98 Room Air 08/12/19 02:30 36.7 60 20 116/77 (90) 98 Room Air 08/11/19 21:09 37.1 64 18 111/70 (84) 100 Room Air 08/11/19 16:30 53 113/75 (88) 08/11/19 16:00 48 122/84 (97) 08/11/19 15:45 48 127/85 (99) 08/11/19 15:30 51 122/83 (96) 08/11/19 15:15 58 120/75 (90) 08/11/19 15:00 62 121/74 (90) 08/11/19 14:45 54 116/72 (87) Room Air 08/11/19 14:15 56 114/76 (89) Room Air 08/11/19 14:00 53 110/73 (85) Room Air 08/11/19 13:45 36.5 48 110/65 (80) Room Air 08/11/19 13:30 63 123/83 (96) Room Air 08/11/19 13:15 55 112/80 (91) Room Air 08/11/19 13:00 48 110/75 (87) Room Air 08/11/19 12:45 36.3 50 117/75 (89) Room Air 08/11/19 12:30 52 111/67 (82) Room Air 08/11/19 12:15 51 112/70 (84) Room Air 08/11/19 12:00 48 16 111/71 (84) 99 08/11/19 11:45 52 110/66 (81) 98 08/11/19 11:30 61 106/60 (75) 98 08/11/19 11:15 50 105/64 (78) 98 08/11/19 11:00 36.0 65 118/64 (82) 97 I & O 08/12/19 07:00 Intake Total 3500 ml Balance 3500 ml Labs Laboratory Tests 08/12/19 06:17: White Blood Count 9.7, Red Blood Count 4.02L, Hemoglobin 11.5, Hematocrit 33L, Mean Corpuscular Volume 83, Mean Corpuscular Hemoglobin 29, Mean Corpuscular Hemoglobin Concent 35, Red Cell Distribution Width 12.5, Platelet Count 183, Mean Platelet Volume 11.3H, Neutrophils (%) (Auto) 71, Lymphocytes (%) (Auto) 23, Monocytes (%) (Auto) 6, Eosinophils (%) (Auto) 0, Basophils (%) (Auto) 0, Neutrophils # (Auto) 6.8, Lymphocytes # (Auto) 2.2, Monocytes # (Auto) 0.6, Eosinophils # (Auto) 0.0, Basophils # (Auto) 0.0 KEZIA ORTIZ DO Aug 12, 2019 10:45 POS
--- NOTE | 2019-08-12 15:00 | NUR ---
dismissal instructions given, verbalizes understanding. reviewed follow up appointments and dismissal medications. signature page singed, placed on chart.
[2019-08-12 15:20] VITALS: BP 126/81
--- NOTE | 2019-08-12 16:20 | NUR ---
pt dismissed to private vehicle with CALVIN Barrios @ side. secured in rear facing car seat. pt stable with no sx's of distress noted.
--- OUTSIDE RECORDS SUMMARY | 2019-09-06 07:47 | XMS REPORT | Continuity of Care Document ---
Author Organization Unknown Address Unknown Phone Unavailable Allergies Active Description Code Type Severity Reaction Onset Reported/Identified Relationship to Patient Clinical Status Yes No Known Drug Allergies [id number] Drug Allergy Unknown N/A 11/18/2017 Medications There is no data. Problems Date Dx Coded Attending Type Code Diagnosis Diagnosed By 08/19/2017 DORYS WELLS DO Ot G93.0 CEREBRAL CYSTS 08/19/2017 DORYS WELLS DO Ot O99.3 52 DISEASES OF THE NERVOUS SYS COMP PREGNAN 08/19/2017 DORYS WELLS DO Ot Z3A.2 1 21 WEEKS GESTATION OF 11/21/2017 DORYS WELLS DO Ot O14.1 4 SEVERE PRE-ECLAMPSIA COMPLICATING CHILDB 11/21/2017 DORYS WELLS DO Ot O69.82X0 LABOR AND DEL COMP BY [facility] CORD ENTANGLE, 11/21/2017 DORYS WELLS DO Ot Z37.0 SINGLE LIVE 11/21/2017 DORYS WELLS DO Ot Z3A.3 6 36 WEEKS GESTATION OF 03/24/2019 DORYS WELLS DO Ot G93.0 CEREBRAL CYSTS 03/24/2019 DORYS WELLS DO Ot O99.3 52 DISEASES OF THE NERVOUS SYS COMP PREGNAN 03/24/2019 DORYS WELLS DO Ot Z3A.2 1 21 WEEKS GESTATION OF 03/31/2019 DORYS WELLS DO Ot Z36.8 9 ENCOUNTER FOR OTHER SPECIFIED 03/31/2019 DORYS WELLS DO Ot Z3A.1 8 18 WEEKS GESTATION OF 04/28/2019 DORYS WELLS DO Ot Z34.0 0 ENCNTR FOR SUPRVSN OF NORMAL FIRST PREGN 04/28/2019 DORYS WELLS DO Ot Z34.9 0 ENCNTR FOR SUPRVSN OF NORMAL , 05/12/2019 ODRYS WELLS DO Ot Z34.0 0 ENCNTR FOR SUPRVSN OF NORMAL FIRST PREGN 05/12/2019 DORYS WELLS DO Ot Z34.9 0 ENCNTR FOR SUPRVSN OF NORMAL , 08/12/2019 DORYS WELLS DO Ot O80 ENCOUNTER FOR FULL-TERM UNCOMPLICATED DE 08/12/2019 DORYS WELLS DO Ot Z37.0 SINGLE LIVE 08/12/2019 DORYS WELLS DO Ot Z3A.3 9 39 WEEKS GESTATION OF Procedures Code Description Performed By Per formed On 86S3JNT DE LIVERY OF PRODUCTS OF CONCEPTION, EXTE 11/19/[address] CERVANTES OF AMNIOTIC FL, THERAP FROM POC 08/11/2019 [id number] DE LIVERY OF PRODUCTS OF CONCEPTION, EXTE 08/11/2019 Results Test Result Range Complete urinalysis with reflex to cultu re - 11/18/17 20:00 Urine color determination YELLOW NRG Urine clarity determination CLEAR NR G Urine pH measurement by test strip 6 5-9 Specific gravity of urine by test strip 1.010 1.016-1.022 Urine protein assay by test strip, semi-quantitative 3+ NEGATIVE Urine glucose detection by automated test strip NE GATIVE NEGATIVE Erythrocytes detection in urine sediment by light micr oscopy 1+ NEGATIVE Urine ketones detection by automated test strip NE GATIVE NEGATIVE Urine nitrite detection by test strip NEGATIVE NEGATIVE Urine total bilirubin detection by test strip NEGA TIVE NEGATIVE Urine urobilinogen measurement by automated test strip (mass/volume) NORMAL NORMAL Urine leukocyte esterase detection by dipstick NEG ATIVE NEGATIVE Automated urine sediment erythrocyte cou nt by microscopy (number/high power field) RARE NRG Automated urine sediment leukocyte count by microscopy (number/high power field) [HPF] NRG Bacteria detection in urine sediment by light microsco py TRACE NRG Squamous epithelial cells detection in u rine sediment by light microscopy 2-5 NRG Crystals detection in urine sediment by light microsco py NONE NRG Casts detection in urine sediment by light microscopy NONE NRG Mucus detection in urine sediment by light microscopy NEGATIVE NRG Complete urinalysis with reflex to culture NO NRG Bacterial urine culture - 11/18/17 20:00 URINE CULTURE RESULTS <10,000/ML NRG Complete blood count (CBC) with automate d white blood cell (WBC) differential - 11/18/17 20:20 Blood leukocytes automated count (number/volume) 18.6 10*3/uL 4.3-11.0 Blood erythrocytes automated count (number/volume) 4.00 10*6/uL 4.35-5.85 Venous blood hemoglobin measurement (mass/volume) 11.9 g/dL 11.5-16.0 Blood hematocrit (volume fraction) 34 % 35-52 Automated erythrocyte mean corpuscular volume 86 [ foz_us] 80-99 Automated erythrocyte mean corpuscular h emoglobin (mass per erythrocyte) 30 pg 25-34 Automated erythrocyte mean corpuscular h emoglobin concentration measurement (mass/volume) 35 g/dL 32-36 Automated erythrocyte distribution width ratio 12. 8 % 10.0- 14.5 Automated blood platelet count (count/volume) 189 10*3/uL 130-400 Automated blood platelet mean volume measurement 12.8 [foz_us] 7.4-10.4 Automated blood neutrophils/100 leukocytes 70 % 42-75 Automated blood lymphocytes/100 leukocytes 19 % 12-44 Blood monocytes/100 leukocytes 11 % 0-12 Automated blood eosinophils/100 leukocytes 0 % 0-10 Automated blood basophils/100 leukocytes 0 % 0-10 Blood neutrophils automated count (number/volume) 13.1 10*3 1.8-7.8 Blood lymphocytes automated count (number/volume) 3.4 10*3 1.0-4.0 Blood monocytes automated count (number/volume) 2. 0 10*3 0.0-1.0 Automated eosinophil count 0.0 10*3/uL 0 .0-0.3 Automated blood basophil count (count/volume) 0.0 10*3/uL 0.0-0.1 Comprehensive metabolic panel - 11/18/17 20:20 Serum or plasma sodium measurement (moles/volume) 135 mmol/L 135-145 Serum or plasma potassium measurement (moles/volume) 4.0 mmol/L 3.6-5.0 Serum or plasma chloride measurement (moles/volume) 103 mmol/L 98-107 Carbon dioxide 23 mmol/L 21-32 Serum or plasma anion gap determination (moles/volume) 9 mmol/L 5-14 Serum or plasma urea nitrogen measurement (mass/volume ) 10 mg/dL 7-18 Serum or plasma creatinine measurement (mass/volume) 0.72 mg/dL 0.60-1.30 Serum or plasma urea nitrogen/creatinine mass ratio 14 NRG Serum or plasma creatinine measurement w ith calculation of estimated glomerular filtration rate > NRG Serum or plasma glucose measurement (mass/volume) 97 mg/dL 70-105 Serum or plasma calcium measurement (mass/volume) 8.9 mg/dL 8.5-10.1 Serum or plasma total bilirubin measurement (mass/volu me) 0.2 mg/dL 0.1-1.0 Serum or plasma alkaline phosphatase heather surement (enzymatic activity/volume) 212 U/L 40-136 Serum or plasma aspartate aminotransfera se measurement (enzymatic activity/volume) 33 U/L 5-34 Serum or plasma alanine aminotransferase measurement (enzymatic activity/volume) 29 U/L 0-55 Serum or plasma protein measurement (mass/volume) 6.1 g/dL 6.4-8.2 Serum or plasma albumin measurement (mass/volume) 3.2 g/dL 3.2-4.5 Serum or plasma uric acid measurement (m ass/volume) - 11/18/17 20:20 Serum or plasma uric acid measurement (mass/volume) 5.3 mg/dL 2.6-7.2 Lactate dehydrogenase 1 [enzymatic activ ity/volume] in serum or plasma - 11/18/17 20:20 Lactate dehydrogenase 1 [enzymatic activ ity/volume] in serum or plasma 233 U/L 125-220 Blood manual differential performed dete ction - 11/18/17 20:20 Blood monocytes/100 leukocytes 5 % NRG Manual blood segmented neutrophils/100 leukocytes 71 % NRG Blood band neutrophils/100 leukocytes 0 % NRG Manual blood lymphocytes/100 leukocytes 24 % NRG Manual eosinophils/100 leukocytes in nose 0 % NRG Manual blood basophils/100 leukocytes 0 % NRG Blood erythrocyte morphology finding identification NORMAL NRG Blood type T Indirect antibody screen pa candy - 11/18/17 20:20 ABO+Rh group BP NRG Transfusion band number [id number] NRG Blood group antibody screen NEGATIVE NR G Complete blood count (CBC) with automate d white blood cell (WBC) differential - 11/20/17 05:05 Blood leukocytes automated count (number/volume) 16.8 10*3/uL 4.3-11.0 Blood erythrocytes automated count (number/volume) 3.66 10*6/uL 4.35-5.85 Venous blood hemoglobin measurement (mass/volume) 11.0 g/dL 11.5-16.0 Blood hematocrit (volume fraction) 31 % 35-52 Automated erythrocyte mean corpuscular volume 86 [ foz_us] 80-99 Automated erythrocyte mean corpuscular h emoglobin (mass per erythrocyte) 30 pg 25-34 Automated erythrocyte mean corpuscular h emoglobin concentration measurement (mass/volume) 35 g/dL 32-36 Automated erythrocyte distribution width ratio 12. 7 % 10.0- 14.5 Automated blood platelet count (count/volume) 153 10*3/uL 130-400 Automated blood platelet mean volume measurement 12.3 [foz_us] 7.4-10.4 Automated blood neutrophils/100 leukocytes 76 % 42-75 Automated blood lymphocytes/100 leukocytes 16 % 12-44 Blood monocytes/100 leukocytes 7 % 0-12 Automated blood eosinophils/100 leukocytes 0 % 0-10 Automated blood basophils/100 leukocytes 0 % 0-10 Blood neutrophils automated count (number/volume) 12.9 10*3 1.8-7.8 Blood lymphocytes automated count (number/volume) 2.7 10*3 1.0-4.0 Blood monocytes automated count (number/volume) 1. 2 10*3 0.0-1.0 Automated eosinophil count 0.0 10*3/uL 0 .0-0.3 Automated blood basophil count (count/volume) 0.0 10*3/uL 0.0-0.1 Complete blood count (CBC) with automate d white blood cell (WBC) differential - 11/20/17 11:55 Blood leukocytes automated count (number/volume) 15.2 10*3/uL 4.3-11.0 Blood erythrocytes automated count (number/volume) 3.74 10*6/uL 4.35-5.85 Venous blood hemoglobin measurement (mass/volume) 11.1 g/dL 11.5-16.0 Blood hematocrit (volume fraction) 32 % 35-52 Automated erythrocyte mean corpuscular volume 86 [ foz_us] 80-99 Automated erythrocyte mean corpuscular h emoglobin (mass per erythrocyte) 30 pg 25-34 Automated erythrocyte mean corpuscular h emoglobin concentration measurement (mass/volume) 35 g/dL 32-36 Automated erythrocyte distribution width ratio 12. 9 % 10.0- 14.5 Automated blood platelet count (count/volume) 147 10*3/uL 130-400 Automated blood platelet mean volume measurement 12.5 [foz_us] 7.4-10.4 Automated blood neutrophils/100 leukocytes 73 % 42-75 Automated blood lymphocytes/100 leukocytes 20 % 12-44 Blood monocytes/100 leukocytes 7 % 0-12 Automated blood eosinophils/100 leukocytes 0 % 0-10 Automated blood basophils/100 leukocytes 0 % 0-10 Blood neutrophils automated count (number/volume) 11.1 10*3 1.8-7.8 Blood lymphocytes automated count (number/volume) 3.0 10*3 1.0-4.0 Blood monocytes automated count (number/volume) 1. 1 10*3 0.0-1.0 Automated eosinophil count 0.0 10*3/uL 0 .0-0.3 Automated blood basophil count (count/volume) 0.0 10*3/uL 0.0-0.1 Comprehensive metabolic panel - 11/20/17 11:55 Serum or plasma sodium measurement (moles/volume) 135 mmol/L 135-145 Serum or plasma potassium measurement (moles/volume) 3.8 mmol/L 3.6-5.0 Serum or plasma chloride measurement (moles/volume) 103 mmol/L 98-107 Carbon dioxide 24 mmol/L 21-32 Serum or plasma anion gap determination (moles/volume) 8 mmol/L 5-14 Serum or plasma urea nitrogen measurement (mass/volume ) 8 mg/dL 7-18 Serum or plasma creatinine measurement (mass/volume) 0.71 mg/dL 0.60-1.30 Serum or plasma urea nitrogen/creatinine mass ratio 11 NRG Serum or plasma creatinine measurement w ith calculation of estimated glomerular filtration rate > NRG Serum or plasma glucose measurement (mass/volume) 113 mg/dL 70-105 Serum or plasma calcium measurement (mass/volume) 7.7 mg/dL 8.5-10.1 Serum or plasma total bilirubin measurement (mass/volu me) 0.1 mg/dL 0.1-1.0 Serum or plasma alkaline phosphatase heather surement (enzymatic activity/volume) 159 U/L 40-136 Serum or plasma aspartate aminotransfera se measurement (enzymatic activity/volume) 28 U/L 5-34 Serum or plasma alanine aminotransferase measurement (enzymatic activity/volume) 21 U/L 0-55 Serum or plasma protein measurement (mass/volume) 5.3 g/dL 6.4-8.2 Serum or plasma albumin measurement (mass/volume) 2.8 g/dL 3.2-4.5 Lactate dehydrogenase 1 [enzymatic activ ity/volume] in serum or plasma - 11/20/17 11:55 Lactate dehydrogenase 1 [enzymatic activ ity/volume] in serum or plasma 278 U/L 125-220 Complete blood count (CBC) with automate d white blood cell (WBC) differential - 08/11/19 06:25 Blood leukocytes automated count (number/volume) 9.2 10*3/uL 4.3-11.0 Blood erythrocytes automated count (number/volume) 3.84 10*6/uL 4.35-5.85 Venous blood hemoglobin measurement (mass/volume) 11.0 g/dL 11.5-16.0 Blood hematocrit (volume fraction) 32 % 35-52 Automated erythrocyte mean corpuscular volume 84 [ foz_us] 80-99 Automated erythrocyte mean corpuscular h emoglobin (mass per erythrocyte) 29 pg 25-34 Automated erythrocyte mean corpuscular h emoglobin concentration measurement (mass/volume) 34 g/dL 32-36 Automated erythrocyte distribution width ratio 12. 2 % 10.0- 14.5 Automated blood platelet count (count/volume) 200 10*3/uL 130-400 Automated blood platelet mean volume measurement 11.9 [foz_us] 7.4-10.4 Automated blood neutrophils/100 leukocytes 67 % 42-75 Automated blood lymphocytes/100 leukocytes 24 % 12-44 Blood monocytes/100 leukocytes 9 % 0-12 Automated blood eosinophils/100 leukocytes 1 % 0-10 Automated blood basophils/100 leukocytes 0 % 0-10 Blood neutrophils automated count (number/volume) 6.1 10*3 1.8-7.8 Blood lymphocytes automated count (number/volume) 2.2 10*3 1.0-4.0 Blood monocytes automated count (number/volume) 0. 8 10*3 0.0-1.0 Automated eosinophil count 0.1 10*3/uL 0 .0-0.3 Automated blood basophil count (count/volume) 0.0 10*3/uL 0.0-0.1 Blood type T Indirect antibody screen pa candy - 08/11/19 06:25 WRISTBAND NUMBER [id number] [facility] ABO+Rh group BP NRG Blood group antibody screen NEGATIVE NR G Complete blood count (CBC) with automate d white blood cell (WBC) differential - 08/12/19 06:17 Blood leukocytes automated count (number/volume) 9.7 10*3/uL 4.3-11.0 Blood erythrocytes automated count (number/volume) 4.02 10*6/uL 4.35-5.85 Venous blood hemoglobin measurement (mass/volume) 11.5 g/dL 11.5-16.0 Blood hematocrit (volume fraction) 33 % 35-52 Automated erythrocyte mean corpuscular volume 83 [ foz_us] 80-99 Automated erythrocyte mean corpuscular h emoglobin (mass per erythrocyte) 29 pg 25-34 Automated erythrocyte mean corpuscular h emoglobin concentration measurement (mass/volume) 35 g/dL 32-36 Automated erythrocyte distribution width ratio 12. 5 % 10.0- 14.5 Automated blood platelet count (count/volume) 183 10*3/uL 130-400 Automated blood platelet mean volume measurement 11.3 [foz_us] 7.4-10.4 Automated blood neutrophils/100 leukocytes 71 % 42-75 Automated blood lymphocytes/100 leukocytes 23 % 12-44 Blood monocytes/100 leukocytes 6 % 0-12 Automated blood eosinophils/100 leukocytes 0 % 0-10 Automated blood basophils/100 leukocytes 0 % 0-10 Blood neutrophils automated count (number/volume) 6.8 10*3 1.8-7.8 Blood lymphocytes automated count (number/volume) 2.2 10*3 1.0-4.0 Blood monocytes automated count (number/volume) 0. 6 10*3 0.0-1.0 Automated eosinophil count 0.0 10*3/uL 0 .0-0.3 Automated blood basophil count (count/volume) 0.0 10*3/uL 0.0-0.1 Encounters ACCT No. Visit Date/Time Discharge Status Pt. Type Provider Facility Loc./Unit Complaint [id number] 08/11/2019 06:14:00 16:20:00 DIS Inpatient DORYS WELLS DO [facility] LDRP INDUCTION [id number] 04/26/2019 11:16:00 08/21/2 019 23:59:59 CLS Outpatient DORYS WELLS DO [facility] RAD LOW LYING PLACENTA,FETU S PRESENT DURING [id number] 03/27/2019 11:14:00 019 23:59:59 CLS Outpatient DORYS WELLS DO [facility] RAD FETUS PRESENT DURING RI EGNANCY IN SECOND TRIMESTER [id number] 11/18/2017 19:58:00 018 14:30:00 DIS Inpatient DORYS WELLS DO [facility] LDRP INDUCTION [id number] 08/02/2017 10:05:00 017 23:59:59 [facility] Outpatient DORYS WELLS DO [facility] RAD FETUS PRESENT DURING RI EGNANCY IN 2ND TRIMESTER
== END 2019-08-12 16:20 | disposition home or self-care (01) | DRG 807 ==
LOC: LDRP 06:14
PROVIDERS: ADMIT Obstetrics & Gynecology; ATTEND Obstetrics & Gynecology
PROC: 10E0XZZ Delivery of Products of Conception, External Approach (ICD-10-PCS; principal; 2019-08-11)
PROC: 10907ZC Drainage of Amniotic Fluid, Therapeutic from Products of Conception, Via Natural or Artificial Opening (ICD-10-PCS; 2019-08-11)
DX: O80 Encounter for full-term uncomplicated delivery (principal); Z3A.39 39 weeks gestation of pregnancy; Z37.0 Single live birth
CPT/HCPCS: 36415; 85025; 86850; 86900; 86901